=== PATIENT | female | born 1990 ===

== ENCOUNTER 2021-06-28 20:35 | Inpatient (IN) ==
[2021-06-28] MEDS ORDERED: Metoclopramide 10 MG/2 ML VIAL IVP PRN (20:45)
[2021-06-28] MEDS ORDERED: Famotidine 20 MG/2 ML VIAL IVP PRN (20:45)
[2021-06-28] MEDS ORDERED: Naloxone 0.4 MG/ML INJ IVP PRN (20:45)
[2021-06-28] MEDS ORDERED: Ondansetron 4 MG/2 ML VIAL IVP PRN (20:45)
[2021-06-28] MEDS ORDERED: *HR* Nalbuphine 10 MG/ML AMPUL IV PRN (20:45)
[2021-06-28] MEDS ORDERED: Ringers Solution, Lactated 1,000 ML IVC SCH (20:45)
[2021-06-28] MEDS ORDERED: Lidocaine 1% 20 ML MDV INFILT PRN (20:45)
[2021-06-28] MEDS ORDERED: Oxytocin 20 units/ LR 1000 mL 20 UNIT/1,000 ML BAG IVC ONE (22:13)
[2021-06-28] MEDS ORDERED: Oxytocin 20 units/ LR 1000 mL 20 UNIT/1,000 ML BAG IVC SCH ×2 (22:15)
[2021-06-28] MEDS ORDERED: *HR* FentaNYL (PF) 100 MCG/2 ML VIAL EP ONE (22:17)
[2021-06-28] MEDS ORDERED: EPHEDrine 50 MG/ML VIAL IVP PRN (22:17)
[2021-06-28] MEDS ORDERED: Ropivacaine/PF 0.2% 20 ML VIAL EP ONE (22:17)
[2021-06-28 22:20] LABS: Basophils # 0.1 K/mcL (0.0-0.2); Basophils % 0.5 %; Eosinophils # 0.2 K/mcL (0.0-0.6); Eosinophils % 1.3 %; Hemoglobin 11.4 g/dL (11.5-15.4); Immature Granulocytes % 2.5 % (0-4); Lymphocytes # 3.3 K/mcL (0.6-4.6); Lymphocytes % 21.4 %; Mean Corpuscular HGB Conc 32.6 g/dL (31.6-35.5); Mean Corpuscular Hemoglobin 29.6 pg (28.0-33.3); Mean Corpuscular Volume 90.9 fL (83.0-100.0); Mean Platelet Volume 12.2 fL (9.4-12.4); Monocytes # 1.2 K/mcL (0.0-1.3); Monocytes % 7.5 %; Neutrophils # 10.3 K/mcL (1.6-8.9); Platelet Count 197 K/mcL (140-400); Red Blood Count 3.85 M/mcL (3.82-4.97); Red Cell Distribution Width 13.4 % (11.5-14.5); Segmented Neutrophils % 66.8 %; White Blood Count 15.4 K/mcL (4.3-11.1)
[2021-06-28 22:27] LABS: Amphetamine Screen,Urine Negative ng/mL (Cutoff=1000); Barbiturate Screen,Urine Negative ng/mL (Cutoff=200); Benzodiazepines Screen,Urine Negative ng/mL (Cutoff=200); Cannabinoid Screen,Urine Negative ng/mL (Cutoff = 50); Cocaine Screen,Urine Negative ng/mL (Cutoff= 300); Opiate Screen,Urine Negative ng/mL (Cutoff=300); Phencyclidine Screen,Urine Negative ng/mL (Cutoff=25)
[2021-06-28] MEDS ORDERED: Epidural Premix (fent/bupiv) 110 ML EP SCH (22:30)
[2021-06-28 22:52] LABS: Influenza A PCR Negative (Negative); Influenza B PCR Negative (Negative); Resp. Syncytial Virus PCR Negative (Negative)
[2021-06-28 23:00] LABS: SARS-CoV-2 by PCR (In House) Negative (Negative)
[2021-06-29] MEDS ORDERED: Ropivacaine/PF 0.2% 20 ML VIAL ONE (01:38)
[2021-06-29] MEDS ORDERED: *HR* FentaNYL (PF) 100 MCG/2 ML VIAL ONE (01:38)
[2021-06-29] MEDS ORDERED: *HR* Labetalol 20 MG/4 ML SYRINGE IVP PRN (03:45)
[2021-06-29] MEDS ORDERED: *HR* Labetalol 20 MG/4 ML SYRINGE IVP ONE (03:45)
[2021-06-29 05:00] LABS: Basophils % 0.2 %; Hematocrit 32.5 % (35.3-44.9); Hemoglobin 10.9 g/dL (11.5-15.4); Immature Granulocytes % 1.3 % (0-4); Lymphocytes # 1.3 K/mcL (0.6-4.6); Lymphocytes % 5.9 %; Mean Corpuscular HGB Conc 33.5 g/dL (31.6-35.5); Mean Corpuscular Hemoglobin 30.4 pg (28.0-33.3); Mean Corpuscular Volume 90.5 fL (83.0-100.0); Mean Platelet Volume 12.4 fL (9.4-12.4); Monocytes # 0.9 K/mcL (0.0-1.3); Monocytes % 3.9 %; Neutrophils # 19.8 K/mcL (1.6-8.9); Platelet Count 159 K/mcL (140-400); Red Blood Count 3.59 M/mcL (3.82-4.97); Red Cell Distribution Width 13.4 % (11.5-14.5); Segmented Neutrophils % 88.7 %; White Blood Count 22.3 K/mcL (4.3-11.1)
[2021-06-29 05:11] LABS: Alanine Aminotransferase 17 Units/L (7-52); Aspartate Amino Transferase 17 Units/L (13-39); BUN/Creatinine Ratio 24 (6-26); Blood Urea Nitrogen 14 mg/dL (6-20); Lactate Dehydrogenase 126 Units/L (140-271); Uric Acid 3.5 mg/dL (2.3-7.6); eGFR For African Americans > 60 (> 60); eGFR For Non-African Americans > 60 (> 60)
[2021-06-29] MEDS ORDERED: Lanolin 7 G OINT...G. TP PRN (05:48)
[2021-06-29] MEDS ORDERED: Oxytocin 20 units/ LR 1000 mL 20 UNIT/1,000 ML BAG IVC SCH (05:48)
[2021-06-29] MEDS ORDERED: Measles/Mumps/Rubella Vacc 0.5 ML VIAL SQ PRN (05:48)
[2021-06-29] MEDS ORDERED: Benzocaine/Menthol 56 GM AEROSOL SPRAY TP PRN (05:48)
[2021-06-29] MEDS ORDERED: Ondansetron ODT 4 MG TAB.RAPDIS SL PRN (05:48)
[2021-06-29] MEDS: Acetaminophen 325 MG TABLET PO SCH ×2 (19:48→19:49)
[2021-06-29] MEDS: Ibuprofen 600 MG TABLET PO SCH ×2 (19:49→19:50)
[2021-06-29] MEDS: Prenatal Vit/FA 1 EACH TABLET PO SCH (19:50)
[2021-06-29 20:05] VITALS: O2SAT 98
[2021-06-30 08:05] VITALS: BP 115/71; PULSE 90; TEMP 97.9
[2021-06-30] MEDS: Prenatal Vit/FA 1 EACH TABLET PO SCH (08:06)
== END 2021-06-30 11:15 | disposition home or self-care (01) | DRG 807 ==
LOC: 1NENULAB 20:35 → 1NENUOBS 06-29 05:41
PROVIDERS: ADMIT Obstetrics & Gynecology; ATTEND Obstetrics & Gynecology